=== PATIENT | female | born 1940 | race Caucasian/White ===

== ENCOUNTER → 2019-03-25 | Outpatient (CLI) | payer MEDICARE, BC ==
--- NOTE | 2019-03-25 11:38 | CT ---
"EXAMINATION TYPE: CT brain wo con DATE OF EXAM: 03/25/2019 COMPARISON: None HISTORY: Left sided weakness, Confusion CT DLP: 1054.2 mGycm Automated exposure control for dose reduction was used. FINDINGS: There is no acute intracranial hemorrhage, mass effect, or midline shift identified. There is moderat e generalized degenerative change. Faint low-attenuation may been the basis of remote microvascular i schemia. No midline shift or mass effect. Intracranial atherosclerotic changes noted. Calvarium is intact. There is complete opacification left maxillary sinus with mixed density. Cannot exclude a hyperdense artery in the right MCA IMPRESSION: 1. There is a secondary branch the right MCA which is somewhat hyperdense. Acute thrombosis not exclu ded. Recommend MRI MRA. Report telephoned to referring clinician 03/25/2018 11:34 AM. 2. Degenerative and nonspecific white matter changes most typical remote microvascular ischemia. If t here is concern for acute ischemia correlate with MRI as clinically warranted. 3. Complete opacification of the left maxillary sinus with mixed attenuation. May represent a area of sinusitis with hemorrhagic, high proteinaceous, or fungal component. Correlate clinically. A [place] critical message alert has been initiated for Tarah Daly MD via the [employer] | Critical Results System on 03/25/2019 11:34 AM. This message alert has been sent to Tarah sehll MD via the preferences provided by the clinician for the receipt of Radiology Critical Finding s. Message ID [id number]."
--- NOTE | 2019-03-25 13:31 | CT ---
EXAMINATION TYPE: CT angio head neck DATE OF EXAM: 03/25/2019 HISTORY: Confusion. Left sided weakness COMPARISON: CT of the same date CT DLP: 202.5 mGycm. Automated Exposure Control for Dose Reduction was Utilized. TECHNIQUE: CTA scan of the neck is performed with IV Contrast, patient injected with 50 mL of Isovue 300, axial images are obtained, coronal and sagittal reformatted images are reviewed. Three-D recons tructed images are created on an independent workstation and reviewed. FINDINGS: Carotid/Vascular Structures: There is a conventional three-vessel branch pattern of the aortic arch. Multiple outpouchings are seen of the right vertebral artery at the level of C2 and C1 measuring 2 mm on axial series 4 image 57 and 3 mm on coronal series 7 image 14. Similar appearance is seen of the tortuous right internal carotid artery and anterior to this on axial series 4 image 59 and coronal se dhaval 7 image 12. No hemodynamically significant stenosis is seen of the common carotids, vertebral arteries, carotid b ulbs, nor internal carotid arteries. Nonhemodynamically significant atheromatous plaquing is present of the carotid bulbs and internal carotid arteries. The vertebral arteries are codominant and basilar artery is patent. The right posterior cerebral artery has a origin from the right internal car otid artery. The posterior communicating arteries are not clearly identified and [place] of [place] ears incomplete. The proximal middle cerebral arteries are patent, symmetric, and unremarkable with a slightly prominent ICA terminus on the left. Intercommunicating artery is present and anterior cereb ral arteries are patent and unremarkable. Proximal visualized portions of the middle cerebral artery branches appear patent. Hyperdense right MCA may have related to atherosclerosis on the prior CT johnnie ier the same date. Other: Paranasal sinus disease as complex and discussed on the prior CT of the same date. Upper limit s of normal size mediastinal lymph node is incidentally seen. Calcified granuloma of the left upper l obe is noted with mild emphysematous change. Left main pulmonary artery is slightly enlarged suggesti ng underlying pulmonary hypertension. Moderate degenerative disc disease of the cervical spine. IMPRESSION: 1. No hemodynamically significant stenosis is seen within the major arterial vasculature of the head or neck. MRI is recommended based on this patient's clinical symptoms. 2. Undulating lobular appearance of the right vertebral artery focally and right internal carotid art st[place]. Considerations are for small aneurysms, vasculitis, or fibromuscular dysplasia
== END | disposition home or self-care (01) ==
LOC: RADCTMAIN 11:01
PROVIDERS: ATTEND Psychiatry & Neurology Neurology
DX: I67.89 Other cerebrovascular disease (principal); R90.89 Other abnormal findings on diagnostic imaging of central nervous system; R41.0 Disorientation, unspecified
CPT/HCPCS: 82565; 84520; 70496; 70450; 70498; 36415; Q9967